=== PATIENT | male | born 1965 | race Caucasian/White ===

== ENCOUNTER → 2019-06-30 | Outpatient (CLI) | payer BC ==
[~2019-06-30] MED LIST: LORTAB 5 MG/5001 TA1 PO; NAPROSYN500 M1; PRILOSEC20 MG PO; VALTREX 500 MG500 M1 PO; [UNRECOGNIZED DRUG - OTHER] PO
== END ==
LOC: SJCVCIMAG 14:12
DX: R06.00 Dyspnea, unspecified (principal); E78.2 Mixed hyperlipidemia; K21.9 Gastro-esophageal reflux disease without esophagitis; M19.90 Unspecified osteoarthritis, unspecified site; E11.9 Type 2 diabetes mellitus without complications; L23.9 Allergic contact dermatitis, unspecified cause; G47.33 Obstructive sleep apnea (adult) (pediatric); Z79.4 Long term (current) use of insulin; Z99.89 Dependence on other enabling machines and devices; Z79.899 Other long term (current) drug therapy

== ENCOUNTER → 2020-01-15 | Outpatient (CLI) | payer BC ==
[~2020-01-15] VITALS: Ht 182.9 cm; Wt 85.7 kg
[~2020-01-15] MED LIST changes: +CREON DR 12,001 EACH PO; +FLOMAX0.4 MG PO; +GABAPENTIN100 MG PO; +HUMALOG100 UNIT/1 SUBQ; +LANTUS100 UNIT/M SUBQ; +NITROSTAT0.4 M1 SUBLING; +OMEPRAZOLE 20 M20 M1 PO; +VASCEPA1 GM PO; +WELCHOL 625 MG625 M1 PO
[2020-01-15 09:50] VITALS: BP 121/81
[2020-01-15 10:09] LABS: HEMATOCRIT 40.5 % (42.0-52.0); HEMOGLOBIN 13.8 gm/dL (14.0-18.0); MCH 31.2 pg (26.0-34.0); MCHC 34.1 g/dL (28.0-37.0); MCV 91.6 fL (80.0-100.0); RBC 4.42 mil/uL (4.50-6.00); RDW 13.6 % (10.5-14.5); WBC 9.3 thou/uL (4.0-11.0)
--- NOTE | 2020-01-15 10:09 | EKG ---
[facility] [place] [address] ELECTROCARDIOGRAM REPORT Name: OZ VILLANUEVA Room #: REG [facility].#: [id number] Admission: 01/15/20 Attend Phys: Beau Romero Discharge: Date of : 67 Report #: [id number] THIS REPORT FOR: cc: Dylan Petersen,Adi Shaw MD [facility] ~ THIS REPORT FOR: //name// [facility] Test Date: 2020-01-15 Test Time: 09:35:18 Pat Name: OZ VILLANUEVA Department: Room: Gender: Machine Maintenance Technician: RENA : 1965 Requested By: Beau Romero Order Number: [id number] MD: Adi Roque Measurements Intervals Gordon Rate: 55 P: 63 MA: 148 QRS: 60 QRSD: 97 T: 54 QT: 405 QTc: 388 Interpretive Statements Sinus rhythm RSR' in V1 or V2, probably normal variant No previous ECG available for comparison Electronically Signed On 01-15-2020 10:09:33 CDT by Adi Roque [email or web address] <ELECTRONICALLY SIGNED> By: Adi Roque MD, [facility] 01/15/20 1009 0935 0935 Adi Roque MD, [facility] /EPI
[2020-01-15 10:15] LABS: CALCIUM 8.2 mg/dL (8.5-10.1); CREATININE 1.1 mg/dL (0.7-1.3); POTASSIUM 4.1 mmol/L (3.5-5.1)
--- NOTE | 2020-01-26 00:02 | CATHLAB ---
[facility] [place] [address] INVASIVE PROCEDURE REPORT Name: KAYOZ DOUG Room #: REG EVITA [facility]asWilliamLazaroWilliam#: [id number] Admission: 01/15/20 Attend Phys: Beau Romero Discharge: Date of : 67 Report #: [id number] THIS REPORT FOR: cc: Dylan Petersen Steven F. DO Lammoglia, Francisco J. MD ~ APPROVED REPORT Study performed: 01/15/2020 10:17:46 Patient Details Patient Status: Out-Patient Room #: The patient is a 54 year-old male Event Personnel Beau Romero Ham Boner, Matias Bender RN RN, Carolynn Mims RTR Scrub, Hermelinda Pires RTR Monitor Procedures Performed Art Access - R femoral artery* Left Heart Cath w/or w/o Coronaries [id number] [facility] [address] Initial Mod Sed Same Phys/QHP Gr [id number] 09035 Mod Sed Same Phys/QHP Ea [id number] Hemostasis with Manual pressure, supervision of conscious sedation Indication Chest pain Procedure Narrative The Right Groin^ was infiltrated with 1% Lidocaine subcutaneous anesthesia. A PINNACLE 4FR Sheath #[id number] sheath was inserted into the RFA^. Coronary angiography was performed using coronary diagnostic catheters. The right coronary system was accessed and visualized with a JR4 catheter. The left coronary system was accessed and visualized with a JL4 catheter. The left ventricle was accessed and visualized with a PIGTAIL catheter. Hemostasis was obtained with manual pressure following sheath removal without any complications. The patient tolerated the procedure well and there were no complications associated with the procedure. There was no hematoma. Intraoperative Conscious Sedation Sedation start time: 1051 Case end Time: 1108 Versed 2 mg [facility] [address] [place] [address] INVASIVE PROCEDURE REPORT Name: OZ VILLANUEVA Room #: REG [facility]#: [id number] Admission: 01/15/20 Attend Phys: Beau Sorensen Discharge: Date of : 67 Report #: [id number] Fluoro Time: 2.80 minutes Dose: DAP 3553.00 cGycm2 571 mGy Contrast Type and Amount: Omnipaque 40 ml Coronary Angiography The patient's coronary anatomy is right dominant. Diagnostic Cath Left Main moderate caliber vessel of normal origin that bifurcates into a left anterior descending and left circumflex vessel. no significant stenosis LAD moderate caliber type II vessel courses in anterior interventricular sulcus raoidly tapering as it courses towards the apex. Diagonal 1 moderate caliber bifurcating vessel with ostial lesion of 35-40% followed by luminal irregularities Diagonal 2 moderate caliber vessel long length free of high grade disease Circumflex moderate caliber non dominant vessel with ostial narrowing proceed in av groove posteriorly then terminates as a trifurcating vessel free of significant high grade lesions OM1 trifurcating vessel free of significant lesions Right Coronary moderate caliber vessel of normal origin with a proximal 30% lesion which is not flow limiting. it then coarses posteriorly to the crux of the heart where the posterior descending artery arises coarsing in the posterior interventricular sulcus R PDA small caliber vessel without significant lesions Left Ventriculography Left Ventriculography was not performed. Hemodynamics The aortic pressure is 121/69 mmHg with a mean of 80 mmHg. The left ventricular pressure is 120/0 mmHg with a mean of mmHg. The left ventricular end diastolic pressure is 10 mmHg. Conclusion 1. Coronary artery disease minimal nonobstructive lesions 2. Normal hemodynamics Recommendations [facility] [address] [address] INVASIVE PROCEDURE REPORT Name: OZ VILLANUEVA Room #: REG [facility]#: [id number] Admission: 01/15/20 Attend Phys: Beau Sorensen Discharge: Date of : 67 Report #: [id number] Cardiac Risk Reduction Program Medical Therapy <ELECTRONICALLY SIGNED> By: Beau Romero MD 01/26/20 0002 0002 Beau Romero MD /INF
== END | disposition home or self-care (01) ==
LOC: CATH 08:59
PROVIDERS: ATTEND Internal Medicine
DX: R07.9 Chest pain, unspecified (principal); I25.10 Atherosclerotic heart disease of native coronary artery without angina pectoris; E11.9 Type 2 diabetes mellitus without complications; E78.5 Hyperlipidemia, unspecified; M19.90 Unspecified osteoarthritis, unspecified site; F41.9 Anxiety disorder, unspecified; G47.33 Obstructive sleep apnea (adult) (pediatric); Z79.899 Other long term (current) drug therapy; Z90.49 Acquired absence of other specified parts of digestive tract; Z98.890 Other specified postprocedural states; Z79.4 Long term (current) use of insulin; Z85.07 Personal history of malignant neoplasm of pancreas; Z88.2 Allergy status to sulfonamides